=== PATIENT | female | born 1955 | race Caucasian/White ===

== ENCOUNTER 2017-03-29 18:16 | Emergency (ER) | payer OTHER ==
[~2017-03-29] VITALS: Ht 160 cm; Wt 85.7 kg
[~2017-03-29 18:16] MED LIST: TYLENOL WITH C1 EACH PO
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
[2017-03-29 19:35] LABS: ABSOLUTE BASOPHIL COUNT 0 /CUMM (0.0-0.2); ABSOLUTE EOSINOPHIL COUNT 0.2 /CUMM (0.0-0.7); ABSOLUTE GRANULOCYTE CT 4.1 /CUMM (1.4-6.5); ABSOLUTE LYMPH COUNT 0.7 /CUMM (1.2-3.4); ABSOLUTE MONOCYTE COUNT 0.5 /CUMM (0.10-0.60); BASOPHIL % 0.7 % (0.0-2.0); EOSINOPHIL % 3.8 % (0-5); GRANULOCYTE % 74.9 % (42.2-75.2); MEAN CORPUSCULAR HGB CONC 32.4 G/DL (33.0-37.0); MEAN CORPUSCULAR VOLUME 83.3 FL (81.0-99.0); MEAN PLATELET VOLUME 8.4 FL (7.4-10.4); PLATELET COUNT 282 /CUMM (130-400); RED BLOOD CELL CT 3.83 /CUMM (4.20-5.40); WHITE BLOOD CELL COUNT 5.5 /CUMM (4.8-10.8)
[2017-03-29 19:42] LABS: PT 19.4 SEC (9.4-12.5)
--- NOTE | 2017-03-29 19:59 | RADIOLOGY REPORT ---
EXAMINATION: XR WRIST, RIGHT CLINICAL INFORMATION: Status post mechanical fall. Tenderness to palpation. Evaluate for right wrist injury. COMPARISON: None. TECHNIQUE: AP, lateral, navicular and oblique views of the right wrist. FINDINGS: No acute fracture or dislocation of the right wrist. Carpal alignment appears grossly maintained. The first and second carpal rows are intact. IMPRESSION: No acute fracture or dislocation of the right wrist.
--- NOTE | 2017-03-29 20:34 | CT SCAN REPORT ---
EXAMINATION: CT HEAD WITHOUT CONTRAST CT MAXILLOFACIAL BONES WITHOUT CONTRAST CLINICAL INFORMATION: Status post fall. Patient on Coumadin. COMPARISON: None. TECHNIQUE: Contiguous axial imaging was performed from the skullbase to vertex without intravenous administration of contrast. Multidetector helical imaging performed through the paranasal sinuses. Imaging is limited due to motion artifacts. DLP: 1560.85 mGy-cm. FINDINGS: There is no evidence of acute intracranial hemorrhage or territorial infarction. No abnormal mass effect or midline shift is seen. Giraldo to white matter differentiation is well preserved. No extra-axial fluid collections are identified. The ventricles are normal in size. There is no abnormal attenuation within the brain parenchyma. The osseous structures are normal. The mastoid air cells are well aerated. There is a midline frontal scalp hematoma measuring 2.6 cm in diameter. Anterior frontal scalp soft tissue contusion injury also noted. There is blood layering in the dependent right maxillary sinus. There is a depressed right orbital floor fracture. The bony fragment is depressed by approximately 4 mm posteriorly. The medial wall of the right orbit is also fractured. Right periorbital soft tissue contusion injury noted. There are posttraumatic inflammatory changes in the retrobulbar space of the right orbit. Subcutaneous emphysema is also present in the right orbit at the fracture site. There is a small amount of blood medial extraconal space of the right orbit at the site of the medial orbital wall fracture. There is no proptosis. No left orbital traumatic findings are seen. The globes are intact bilaterally. The extraocular muscles and optic nerve sheath complexes are intact. There is question of a small fracture through the lateral lamella of the right cribriform plate. A significant rightward nasal septal deviation is noted. There are blood products in the right ethmoid sinus air cells. There is mild mucosal thickening in the left maxillary antrum. The remaining paranasal sinuses are fairly well aerated. The mandible is intact. There are [id number] degenerative changes in the TMJs. The atlantoaxial articulation is maintained with calcification of the surrounding periodontoid ligaments. 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 There are incomplete congenital bony fusion anomalies of the anterior and posterior C1 ring. IMPRESSION: No definite acute intracranial pathology. Motion artifacts somewhat limit evaluation. Midline frontal scalp soft tissue contusion and hematoma. Depressed right orbital floor fracture. Comminuted fractures of the medial wall of the right orbit. Intraorbital emphysema and inflammatory changes with some blood products. No proptosis. No imaging findings of extraocular muscle entrapment. Questionable potential fracture through the right cribriform plate with right anterior ethmoid air cell blood products. Right periorbital soft tissue contusion. 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
[2017-03-29] MEDS ORDERED: PERCOCET 5-3251 EACH PO (21:03)
--- NOTE | 2017-03-29 21:28 | RADIOLOGY REPORT ---
EXAMINATION: XR HAND, LEFT CLINICAL INFORMATION: Pain in left thenar eminence. COMPARISON: None TECHNIQUE: AP and lateral views of the left hand. FINDINGS: No fracture. No dislocation. No focal bone lesion or periosteal reaction. There is mild joint narrowing with spurring of bone at the PIP joint of the middle digit. The joint spaces of the remainder of the hand and wrist are normal. No soft tissue abnormality. IMPRESSION: No acute abnormality. Degenerative change of the PIP joint of the middle digit.
[2017-03-29 21:47] VITALS: BP 132/64
== END 2017-03-29 21:47 ==
LOC: ERH 18:16
PROVIDERS: Student in an Organized Health Care Education/Training Program
DX: S02.31XA Fracture of orbital floor, right side, initial encounter for closed fracture (principal); S02.101A Fracture of base of skull, right side, initial encounter for closed fracture; S02.81XA Fracture of other specified skull and facial bones, right side, initial encounter for closed fracture; Z79.01 Long term (current) use of anticoagulants; W19.XXXA Unspecified fall, initial encounter; Y92.9 Unspecified place or not applicable; Y93.9 Activity, unspecified
CPT/HCPCS: 73110-RT; 73120-LT